=== PATIENT | male | born 1985 | race Caucasian/White ===

== ENCOUNTER 2016-08-15 06:28 | Emergency (ER) | payer SELFPAY ==
[~2016-08-15] VITALS: Ht 170.2 cm; Wt 102.5 kg
[2016-08-15 06:35] VITALS: BP 125/86; PULSE 79; RESP 16; TEMP 97.5; O2SAT 99
[2016-08-15] MEDS ORDERED: VALA1TAB PO ×2 (06:41→06:45)
--- NOTE | 2016-08-15 06:41 | PD ---
HPI Chief Complaint: Skin Problem Time Seen by Provider: 06:40 Travel History International Travel<30 days: No Contact w/Intl Traveler<30days: No History of Present Illness HPI Patient is a 30-year-old male with history of herpetic lesion on his penis, presents to emergency room with complaints of vesicular lesions on his penis ( recurrent HSV). 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 Patient requesting script for Valcylovir. Patient with no other complaints at this time. PFSH Past Surgical History Surgical History: No Previous Surgery Social History Alcohol Use: No Tobacco Use: No Allergies-Medications (Allergen,Severity, Reaction): Coded Allergies: Cipro (Verified Allergy, Severe, Swelling, 08/15/16) Reported Meds & Prescriptions Reported Meds & Active Scripts Active Valacyclovir (Valacyclovir HCl) 1 Gm Tab 1,000 Mg PO TID Valacyclovir (Valacyclovir HCl) 1 Gm Tab 1,000 Mg PO TID 10 Days Review of Systems General / Constitutional: No: Fever Eyes: No: Visual changes HENT: No: Headaches Cardiovascular: No: Chest Pain or Discomfort Respiratory: No: Shortness of Breath Gastrointestinal: No: Abdominal Pain Genitourinary: No: Dysuria Musculoskeletal: No: Pain Skin: Positive Rash Neurologic: No: Weakness Psychiatric: No: Depression Endocrine: No: Polydipsia Hematologic/Lymphatic: No: Easy Bruising Physical Exam Narrative GENERAL: No acute distress, nontoxic SKIN: Focused skin assessment warm/dry.. CARDIOVASCULAR: Regular rate and rhythm. No murmur appreciated. RESPIRATORY: No accessory muscle use. Clear to auscultation. Breath sounds equal bilaterally. GASTROINTESTINAL: Abdomen soft, non-tender, nondistended. : Patient with vesicular lesions on the tip of his phallus MUSCULOSKELETAL: No obvious deformities. No clubbing. No cyanosis. No edema. NEUROLOGICAL: Awake and alert. No obvious cranial nerve deficits. Motor grossly within normal limits. Normal speech. PSYCHIATRIC: Appropriate mood and affect; insight and judgment normal. Data Data Last Documented VS Vital Signs Date Time Temp Pulse Resp B/P Pulse Ox O2 Delivery O2 Flow Rate FiO2 08/15/16 06:35 97.5 79 16 125/86 99 Room Air MDM Medical Decision Making Medical Screen Exam Complete: Yes Emergency Medical Condition: Yes Interpretation(s) Vital Signs Date Time Temp Pulse Resp B/P Pulse Ox O2 Delivery O2 Flow Rate FiO2 08/15/16 06:35 97.5 79 16 125/86 99 Room Air Differential Diagnosis HSV to penis Narrative Course Patient is a 30-year-old male who presents to emergency room with complaints of herpetic lesions to the tip of his phallus. Patient reports that he has had history of HSV to his penis in the past, reports that he has taken valacyclovir in the past for this, reports that he has run out of his medications. Patient reports that he noticed a vesicular lesion to the tip of his phallus this morning, increased pain with his lesions are, patient requesting a prescription for valacyclovir. Patient reports that he is in between primary care doctor's request a prescription for prophylaxis as well Diagnosis Primary Impression: Herpes simplex type 2 infection Patient Instructions: General Instructions Additional Instructions: Please follow-up with your primary care doctor Return to emergency room as needed Please take valacyclovir 1000 mg 3 times a day for 3 days during outbreaks, take first dose at onset of symptoms Please refrain from sexual intercourse while you have an outbreak Please inform all sexual partners of your HSV infection as this is contagious Med/Other Pt SpecificInfo: Prescription(s) given Scripts Valacyclovir 1 Gm Tab1,000 Mg PO TID #90 TAB Ref 0 Prov:Lynne Casillas DO 08/15/16 Disposition: 01 DISCHARGE HOME Condition: Stable Lynne Casillas DO Aug 15, 2016 06:41 Lynne Casillas DO Aug 15, 2016 06:41
== END 2016-08-15 06:55 | disposition home or self-care (01) ==
LOC: PHED 06:28
DX: A60.01 Herpesviral infection of penis (principal)
CPT/HCPCS: 99282

== ENCOUNTER 2017-09-18 13:16 | Emergency (ER) | payer SELFPAY ==
[~2017-09-18 13:16] MED LIST: VALA1TAB PO
[2017-09-18 13:40] VITALS: BP 130/84; PULSE 91; RESP 16; TEMP 98.4; O2SAT 97
[2017-09-18] MEDS ORDERED: VALA500T PO (13:54)
--- NOTE | 2017-09-18 13:57 | PD ---
HPI Chief Complaint: Medication Refill Request Time Seen by Provider: 13:46 Travel History International Travel<30 days: No Contact w/Intl Traveler<30days: No Traveled to known affect area: No History of Present Illness HPI 31-year-old male presents emergency department for medication refill. Patient states that he has a history of HSV-2 and believes he is having an outbreak on his penis. Says that these lesions started yesterday. Says they are becoming painful. His last outbreak was several months ago and states he has 2 outbreaks per year. He has been unable to follow-up with primary care physician for evaluation because of insurance issues. He denies fever, chills, dysuria, hematuria, abdominal pain, back pain. He has no other complaints today. PFSH Past Medical History Medical History: Denies Significant Hx Diminished Hearing: No Tetanus Vaccination: Unknown Influenza Vaccination: No ?: Not Past Surgical History Surgical History: No Previous Surgery Social History Alcohol Use: Yes (DAILY) Tobacco Use: Yes (/3 PPD) Substance Use: No Allergies-Medications (Allergen,Severity, Reaction): Coded Allergies: ciprofloxacin (Verified Allergy, Severe, Swelling, 09/18/17) Reported Meds & Prescriptions Reported Meds & Active Scripts Active Valacyclovir (Valacyclovir HCl) 500 Mg Tab 500 Mg PO BID 10 Days You may stop this medication at 3-5 days if lesions healed. Review of Systems Except as stated in HPI: all other systems reviewed are Neg Physical Exam Narrative GENERAL: Well-nourished, well-developed patient. SKIN: Focused skin assessment warm/dry. HEAD: Normocephalic. EYES: No scleral icterus. No injection or drainage. NECK: Supple, trachea midline. No JVD or lymphadenopathy. CARDIOVASCULAR: Regular rate and rhythm without murmurs, gallops, or rubs. RESPIRATORY: Breath sounds equal bilaterally. No accessory muscle use. GASTROINTESTINAL: Abdomen soft, non-tender, nondistended. No CVA tenderness exam deferred. MUSCULOSKELETAL: No cyanosis, or edema. BACK: Nontender without obvious deformity. No CVA tenderness. Data Data Last Documented VS Vital Signs Date Time Temp Pulse Resp B/P (MAP) Pulse Ox O2 Delivery O2 Flow Rate FiO2 09/18/17 13:40 98.4 91 16 130/84 (99) 97 MDM Medical Decision Making Medical Screen Exam Complete: Yes Emergency Medical Condition: Yes Differential Diagnosis Medication refill, HSV-2, urethritis Narrative Course 31-year-old male presents emergency department for medication refill. Patient states that he has a history of HSV-2 and believes he is having an outbreak on his penis. Says that these lesions started yesterday. Says they are becoming painful. His last outbreak was several months ago and states he has 2 outbreaks per year. He has been unable to follow-up with primary care physician for evaluation because of insurance issues. He denies fever, chills, dysuria, hematuria, abdominal pain, back pain. He has no other complaints today. Vital signs are stable. Physical exam findings are unremarkable point. exam deferred. Patient appears to be a reliable source of information and I do not suspect a malingering component today. Patient be discharged with valacyclovir 500 mg twice a day for recurrence. He is strongly advised to follow-up with a primary care physician for further treatment and evaluation. He states understanding and will comply. Diagnosis Primary Impression: Medication refill Referrals: [facility]. Additional Instructions: Take medications as prescribed. If your lesions are healed, you may stop this medication at 3-5 days. I recommend follow-up with the primary care physician. The [facility] and [facility] are options for primary care. Consider preventative therapy that could be initiated by your primary care physician. If your symptoms persist or worsen return to the emergency department. Scripts Valacyclovir (Valacyclovir) 500 Mg Tab 500 MG PO BID for Mgmt Viral Infection for 10 Days, #20 TAB 1 Refill You may stop this medication at 3-5 days if lesions healed. Prov: Emerson Dickson MD 09/18/17 Disposition: 01 DISCHARGE HOME Condition: Stable Shira Figueroa September 18, 2017 13:57
== END 2017-09-18 14:30 | disposition home or self-care (01) ==
LOC: PHEFT 13:16
DX: Z76.0 Encounter for issue of repeat prescription (principal); A60.01 Herpesviral infection of penis
CPT/HCPCS: 99281